=== PATIENT | male | born 1935 | race Hispanic/Latino ===

== ENCOUNTER 2017-05-04 01:50 | Observation (INO) | payer OTHER ==
[~2017-05-04] VITALS: Ht 170.2 cm; Wt 75.1 kg
[~2017-05-04 01:50] MED LIST: ASPI-555 PO; ATEN25TA PO; CLOP75TA32 PO; LOSA1TAB37 PO; SIMV40TA59 PO; TAMS-1 PO
[2017-05-04 02:27] LABS: CREATININE 1.3 mg/dL (0.5-1.5); POTASSIUM 3.1 mmol/L (3.5-5.1)
[2017-05-04 02:28] LABS: BASOPHILS % (AUTO) 0.8 % (0.0-5.0); EOSINOPHILS % (AUTO) 3.1 % (0.0-8.0); HEMATOCRIT 36.5 % (42-54); LYMPHOCYTES % (AUTO) 22.4 % (21.0-51.0); MEAN CORPUSCULAR HGB CONC 34.9 g/dL (32.0-36.0); MEAN CORPUSCULAR VOLUME 91.6 fL (79-99); MONOCYTES % (AUTO) 4.5 % (3.0-13.0); NEUTROPHILS % (AUTO) 69.2 % (40.0-77.0); PLATELET COUNT (AUTO) 179 K/uL (130-400); RED BLOOD CELL COUNT(AUTO) 3.99 MIL/uL (4.50-6.20); RED CELL DISTRIBUTION WIDTH 13.1 % (11.0-15.5); WHITE BLOOD COUNT (AUTO) 5.4 K/uL (4.8-10.8)
[2017-05-04 02:30] LABS: INR 0.97 (0.85-1.15); PARTIAL THROMBOPLASTIN TIME 28.8 SEC (26.3-35.5); PROTHROMBIN TIME 10.2 SEC (9.6-11.6)
[2017-05-04 02:40] LABS: ALBUMIN 3.4 g/dL (3.5-5.0); BILIRUBIN,TOTAL 0.3 mg/dL (0.2-1.0); CREATINE KINASE MB 3.1 ng/mL (0.5-3.6); TOTAL PROTEIN, SERUM 7.4 g/dL (6.0-8.3)
[2017-05-04] MEDS ORDERED: POTASSIUM BICARB/CIT AC 25 MEQ TABLET.EFF ONE (05:21)
[2017-05-04] MEDS ORDERED: NITROGLYCERIN 1GM/1 INCH PACKET TD SCH ×2 (06:00→06:45)
[2017-05-04] MEDS ORDERED: NITROGLYCERIN 0.4 MG SL TAB SL PRN (06:45)
[2017-05-04] MEDS ORDERED: POTASSIUM CHLORIDE 20MEQ/100ML 100 ML IV PRN (06:45)
[2017-05-04] MEDS ORDERED: ACETAMINOPHEN 325 MG TAB PO PRN ×2 (06:45)
[2017-05-04] MEDS ORDERED: ONDANSETRON HCL 4 MG/2 ML VIAL IV PRN (06:45)
[2017-05-04] MEDS ORDERED: POTASSIUM CHLORIDE 20 MEQ ERTAB PO PRN (06:45)
[2017-05-04] MEDS ORDERED: POTASSIUM CHLORIDE 10% ELIXIR 20 MEQ/15 ML UDCUP PO PRN (06:45)
[2017-05-04] MEDS ORDERED: LIDOCAINE HCL-MPF 1% 2ML VIAL IVP PRN (06:45)
[2017-05-04] MEDS ORDERED: NITROGLYCERIN 1GM/1 INCH PACKET TD ONE (06:59)
[2017-05-04] MEDS ORDERED: ASPIRIN 325 MG TABLET PO SCH (09:00)
[2017-05-04 09:04] LABS: CREATINE KINASE MB 2.4 ng/mL (0.5-3.6); CREATINE KINASE, TOTAL 160 U/L (21-232); MYOGLOBIN 112 ng/mL (10-92); TROPONIN I < 0.04 ng/mL (0.00-0.06)
[2017-05-04] MEDS: ENOXAPARIN SODIUM 30 MG/0.3 ML SQ SCH (09:06)
[2017-05-04] MEDS: FAMOTIDINE 20MG TAB 20 MG TAB PO SCH ×2 (09:06→20:47)
[2017-05-04 09:10] VITALS: BP 164/73
[2017-05-04 11:18] VITALS: BP 109/49
[2017-05-04 14:10] LABS: CREATINE KINASE MB 2.2 ng/mL (0.5-3.6); CREATINE KINASE, TOTAL 145 U/L (21-232); MYOGLOBIN 117 ng/mL (10-92); TROPONIN I < 0.04 ng/mL (0.00-0.06)
[2017-05-04 16:00] VITALS: BP 153/84
[2017-05-04] MEDS ORDERED: ATENOLOL 25 MG TABLET PO SCH (17:00)
[2017-05-04 20:00] VITALS: BP 142/62
[2017-05-04] MEDS ORDERED: ATORVASTATIN CALCIUM 20 MG TABLET PO SCH (21:00)
[2017-05-05] VITALS: BP 153/72
[2017-05-05 04:00] VITALS: BP 168/76
[2017-05-05] MEDS ORDERED: CLOPIDOGREL BISULFATE 75 MG TAB PO SCH (07:30)
[2017-05-05 08:00] VITALS: BP 157/81
[2017-05-05] MEDS: FAMOTIDINE 20MG TAB 20 MG TAB PO SCH (08:29)
[2017-05-05] MEDS: ENOXAPARIN SODIUM 30 MG/0.3 ML SQ SCH (08:30)
[2017-05-05] MEDS ORDERED: LOSARTAN/HYDROCHLOROTHIAZIDE 50-12.5MG TABLET PO SCH (09:00)
[2017-05-05] MEDS ORDERED: ASPIRIN 81 MG EC TAB PO SCH (09:00)
[2017-05-05 11:37] VITALS: BP 158/73
== END 2017-05-05 13:50 | disposition home or self-care (01) ==
LOC: EDH 01:50 → EDHIP 05:20 → 3DH 08:31
PROVIDERS: ADMIT Internal Medicine; ATTEND Internal Medicine
DX: R07.89 Other chest pain (principal); I10 Essential (primary) hypertension; I25.10 Atherosclerotic heart disease of native coronary artery without angina pectoris; E78.5 Hyperlipidemia, unspecified; Z95.1 Presence of aortocoronary bypass graft
CPT/HCPCS: 36415; 80053; 82550 ×3; 82553 ×3; 83874 ×3; 83880; 84484 ×3; 85025; 85610; 85730; 93005; 96372 ×2; 99291; G0378 ×32; J1650 ×2; 71010

== ENCOUNTER → 2017-05-22 | Outpatient (CLI) | payer OTHER ==
[~2017-05-22] MED LIST changes: -TAMS-1 PO
== END | disposition home or self-care (01) ==
LOC: SHCH 10:52
PROVIDERS: ATTEND Internal Medicine Cardiovascular Disease
DX: I65.21 Occlusion and stenosis of right carotid artery (principal)
CPT/HCPCS: 93880

== ENCOUNTER → 2018-06-22 | Outpatient (CLI) | payer OTHER | END | disposition home or self-care (01) | LOC: SHCH 07:55 | PROVIDERS: ATTEND Internal Medicine Cardiovascular Disease | DX: I65.23 Occlusion and stenosis of bilateral carotid arteries (principal); I71.4 Abdominal aortic aneurysm, without rupture | CPT/HCPCS: 93880; 93978 ==

== ENCOUNTER → 2018-07-03 | Outpatient (CLI) | payer OTHER | END | disposition home or self-care (01) | LOC: SHCH 10:48 | PROVIDERS: ATTEND Internal Medicine Cardiovascular Disease | DX: I11.9 Hypertensive heart disease without heart failure (principal) | CPT/HCPCS: 93306 ==

== ENCOUNTER → 2018-08-24 | Outpatient (CLI) | payer OTHER ==
[~2018-08-24] MED LIST changes: +IOHEXOL-350 75 ML VIAL IV ONE
== END | disposition home or self-care (01) ==
LOC: RAH 09:16
PROVIDERS: ATTEND Internal Medicine Cardiovascular Disease
DX: I65.23 Occlusion and stenosis of bilateral carotid arteries (principal)
CPT/HCPCS: 70498; Q9967

== ENCOUNTER → 2019-01-27 | Outpatient (CLI) | payer OTHER ==
[~2019-01-27] MED LIST changes: -IOHEXOL-350 75 ML VIAL IV ONE
== END | disposition home or self-care (01) ==
LOC: SHCH 09:47
PROVIDERS: ATTEND Internal Medicine Cardiovascular Disease
DX: I65.23 Occlusion and stenosis of bilateral carotid arteries (principal)
CPT/HCPCS: 93880

== ENCOUNTER → 2020-02-01 | Outpatient (CLI) | payer OTHER ==
[~2020-02-01] MED LIST changes: -ASPI-555 PO; +ASPI-556 PO
== END | disposition home or self-care (01) ==
LOC: RAH 14:23
PROVIDERS: ATTEND Family Medicine
DX: K57.30 Diverticulosis of large intestine without perforation or abscess without bleeding (principal); S32.058A Other fracture of fifth lumbar vertebra, initial encounter for closed fracture; R16.0 Hepatomegaly, not elsewhere classified; K76.0 Fatty (change of) liver, not elsewhere classified; I71.4 Abdominal aortic aneurysm, without rupture; N28.1 Cyst of kidney, acquired; N40.0 Benign prostatic hyperplasia without lower urinary tract symptoms; N26.1 Atrophy of kidney (terminal); I70.90 Unspecified atherosclerosis; X58.XXXA Exposure to other specified factors, initial encounter; Y93.89 Activity, other specified; Y92.89 Other specified places as the place of occurrence of the external cause; Y99.8 Other external cause status; M47.815 Spondylosis without myelopathy or radiculopathy, thoracolumbar region; I25.10 Atherosclerotic heart disease of native coronary artery without angina pectoris
CPT/HCPCS: 74176

== ENCOUNTER → 2021-11-20 | Outpatient (CLI) | payer OTHER ==
[~2021-11-20] MED LIST changes: +M-171CAP PO
== END | disposition home or self-care (01) ==
LOC: SHCH 08:31
PROVIDERS: ATTEND Internal Medicine Cardiovascular Disease
DX: I11.9 Hypertensive heart disease without heart failure (principal); I71.4 Abdominal aortic aneurysm, without rupture; E78.5 Hyperlipidemia, unspecified; I34.0 Nonrheumatic mitral (valve) insufficiency
CPT/HCPCS: 93306

== ENCOUNTER → 2021-12-17 | Outpatient (CLI) | payer OTHER ==
[~2021-12-17] VITALS: Ht 170.2 cm; Wt 71.7 kg
[~2021-12-17] MED LIST changes: +REGADENOSON 0.4 MG/5 ML PF SYG IVP SCH
== END | disposition home or self-care (01) ==
LOC: SHCH 07:50
PROVIDERS: ATTEND Internal Medicine Cardiovascular Disease
DX: I25.810 Atherosclerosis of coronary artery bypass graft(s) without angina pectoris (principal); Z86.73 Personal history of transient ischemic attack (TIA), and cerebral infarction without residual deficits
CPT/HCPCS: 78452; 93017; J2785; A9500 ×2; 96374